=== PATIENT | female | born 1990 | race African-American/Black ===

== ENCOUNTER 2017-11-27 08:40 | Emergency (ER) | payer OTHER ==
[~2017-11-27] VITALS: Ht 152.4 cm; Wt 62.6 kg
--- NOTE | 2017-11-27 08:40 | NUR ---
PT BIBA BLS TO ER BED 11
[2017-11-27 08:45] VITALS: BP 119/77
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
--- NOTE | 2017-11-27 09:08 | NUR ---
Patient being evaluated by physician at bedside.
[2017-11-27] MEDS ORDERED: ACETAMINOPHEN EXTRA STRENGTH 500 MG TAB PO ONE (09:10)
--- NOTE | 2017-11-27 09:15 | NUR ---
PT BEING TAKEN TO CT
--- NOTE | 2017-11-27 09:20 | NUR ---
PT BACK FOR CT
[2017-11-27 10:57] VITALS: BP 119/77
--- NOTE | 2017-11-27 10:58 | NUR ---
Patient discharged with v/s stable. Written and verbal after care instructions given and explained. Patient verbalized understanding. Ambulatory with steady gait. All questions addressed prior to discharge. Advised to follow up with PMD.
== END 2017-11-27 10:58 | disposition home or self-care (01) ==
LOC: MED 08:40
DX: Z04.1 Encounter for examination and observation following transport accident (principal); R51 Headache; V89.2XXA Person injured in unspecified motor-vehicle accident, traffic, initial encounter; Y93.89 Activity, other specified; Y92.89 Other specified places as the place of occurrence of the external cause; Y99.8 Other external cause status
CPT/HCPCS: 70450; 72125; 99284